=== PATIENT | female | born 1985 | race Caucasian/White ===

== ENCOUNTER 2021-09-30 10:40 | Outpatient (CLI) | payer BC | END 2021-09-30 19:10 | disposition home or self-care (01) | LOC: SRD 10:40 | PROVIDERS: ATTEND Specialist | DX: D25.9 Leiomyoma of uterus, unspecified (principal); N92.6 Irregular menstruation, unspecified | CPT/HCPCS: 58340; 74740; C1751; Q9967 ==

== ENCOUNTER 2022-01-14 03:58 | Emergency (ER) | payer BC ==
[~2022-01-14] VITALS: Ht 157.5 cm; Wt 124.7 kg
[2022-01-14 04:20] VITALS: BP_SYST 152
--- NOTE | 2022-01-14 04:28 | NUR ---
Patient to ER bed 6 to gown for evaluation. Side rails up.
--- NOTE | 2022-01-14 04:40 | NUR ---
PT COMPLAINING OF PELVIC PAIN AND VAGINAL BLEEDING X1 DAY STATES LMP 11/04/21 APPROX 7 WKS WITH FIRST NAD NOTED AT THIS TIME. RESP E/U. GCS15. AMBULATED WITH STEADY GAIT FROM TRIAGE. SKIN WDL. SPEAKING IN FULL CLEAR SENTENCES. PARTNER AT BEDSIDE. HX UTERINE FIBROIDS, TAKING METFORMIN BUT STATES SHE HAS NEVER BEEN DIAGNOSED WITH DM
--- NOTE | 2022-01-14 04:46 | NUR ---
JENNIFER Iverson at bedside examining patient.
[2022-01-14 05:13] LABS: HEMOGLOBIN 11.4 g/dL (12.0-16.0); RED BLOOD CELL COUNT(AUTO) 4.44 MIL/uL (4.2-6.2)
[2022-01-14 05:20] LABS: BASOPHILS # (AUTO) 0.1 K/uL (0.0-0.2); BASOPHILS % (AUTO) 0.7 % (0.0-2.0); EOSINOPHILS # (AUTO) 0.2 K/uL (0.0-0.4); EOSINOPHILS % (AUTO) 2.5 % (0.0-4.0); HEMATOCRIT 34.7 % (36-48); LYMPHOCYTES # (AUTO) 2.4 K/uL (1.0-5.5); LYMPHOCYTES % (AUTO) 26.9 % (20.5-51.5); MEAN CORPUSCULAR HEMOGLOBIN 26 pg (27-31); MEAN CORPUSCULAR HGB CONC 33 % (32-36); MEAN CORPUSCULAR VOLUME 78 fL (79.0-98.0); MONOCYTES # (AUTO) 0.6 K/uL (0.0-1.0); MONOCYTES % (AUTO) 6.7 % (1.7-9.3); NEUTROPHILS # (AUTO) 5.6 K/uL (1.8-7.7); NEUTROPHILS % (AUTO) 63.2 % (40.0-70.0); PLATELET COUNT (AUTO) 266 K/uL (130-430); RED CELL DISTRIBUTION WIDTH 18.2 % (9.0-15.0); WHITE BLOOD COUNT (AUTO) 8.9 K/uL (4.8-10.8)
[2022-01-14 05:26] LABS: CREATININE 0.79 mg/dL (0.55-1.30); POTASSIUM 3.7 mmol/L (3.5-5.1)
--- NOTE | 2022-01-14 05:34 | NUR ---
PT IN ULTRASOUND
[2022-01-14 06:01] LABS: ALBUMIN 2.9 g/dL (3.4-4.8); TOTAL BILIRUBIN 0.1 mg/dL (0.0-1.0)
[2022-01-14 06:34] VITALS: BP_SYST 114
[2022-01-14 06:36] LABS: BILIRUBIN,URINE NEGATIVE (NEGATIVE); BLOOD, URINE 3+ (NEGATIVE); CLARITY/URINE CLEAR (CLEAR); COLOR,URINE YELLOW (YELLOW); GLUCOSE,URINE NEGATIVE (NEGATIVE); KETONES,URINE NEGATIVE (NEGATIVE); LEUKOCYTE ESTERASE ,URINE NEGATIVE (NEGATIVE); NITRITE, URINE NEGATIVE (NEGATIVE); PROTEIN URINE NEGATIVE (NEGATIVE); UROBILINOGEN,URINE 0.2 (0.2-1.0)
[2022-01-14 06:43] LABS: BACTERIA,URINE RARE /HPF (None Seen); WBC,URINE 0-3 /HPF (0-3)
--- NOTE | 2022-01-14 06:44 | NUR ---
Patient given written and verbal discharge instructions and verbalizes understanding. ER MD discussed with patient the results and treatment provided. Patient in stable condition. ID arm band removed. Patient educated on pain management and to follow up with jail keeper. Pain Scale 0. Opportunity for questions provided and answered. Medication side effect fact sheet provided.
== END 2022-01-14 06:44 | disposition home or self-care (01) ==
LOC: SED 03:58
DX: O20.0 Threatened abortion (principal); Z3A.09 9 weeks gestation of pregnancy
CPT/HCPCS: 36415; 76801; 76817; 80053; 81000; 81025; 84702; 85025; 86900; 86901; 99284

== ENCOUNTER 2022-01-28 17:14 | Observation (INO) | payer BC, MEDICAID ==
[~2022-01-28] VITALS: Ht 160 cm; Wt 123.4 kg
--- NOTE | 2022-01-28 17:15 | NUR ---
Patient to ER bed 07 to gown for evaluation. Side rails up.
--- NOTE | 2022-01-28 17:17 | NUR ---
Pt brought by , A&Ox4, pt presents to ER with lower abdominal pain copious amount of vaginal bleeding and blood clots, pt states she was 9 weeks and 3 days , first , pt passed products of conception prior arrival and brought it in a cup, VSS, skin pink and warm, cap refill <3, respirations even and unlabored, will cont to monitor.
[2022-01-28 17:18] VITALS: BP_SYST 157
--- NOTE | 2022-01-28 17:30 | NUR ---
Dr Urbano evaluating patient at bedside
[2022-01-28] MEDS ORDERED: ONDANSETRON HCL 4 MG/2 ML VIAL IVP ONE (17:45)
[2022-01-28] MEDS ORDERED: MORPHINE 4 MG INJ. 4 MG/ML VIAL IVP ONE (17:45)
[2022-01-28] MEDS ORDERED: NACL 0.9% 1,000 ML IV ONE (17:45)
[2022-01-28 18:44] LABS: BASOPHILS # (AUTO) 0.1 K/uL (0.0-0.2); BASOPHILS % (AUTO) 0.5 % (0.0-2.0); EOSINOPHILS # (AUTO) 0.2 K/uL (0.0-0.4); EOSINOPHILS % (AUTO) 1.5 % (0.0-4.0); LYMPHOCYTES # (AUTO) 3.1 K/uL (1.0-5.5); LYMPHOCYTES % (AUTO) 24.7 % (20.5-51.5); MEAN CORPUSCULAR HEMOGLOBIN 26 pg (27-31); MEAN CORPUSCULAR HGB CONC 32 % (32-36); MEAN CORPUSCULAR VOLUME 79 fL (79.0-98.0); MONOCYTES # (AUTO) 0.8 K/uL (0.0-1.0); MONOCYTES % (AUTO) 6.5 % (1.7-9.3); NEUTROPHILS # (AUTO) 8.3 K/uL (1.8-7.7); NEUTROPHILS % (AUTO) 66.8 % (40.0-70.0); PLATELET COUNT (AUTO) 292 K/uL (130-430); RED BLOOD CELL COUNT(AUTO) 4.29 MIL/uL (4.2-6.2); RED CELL DISTRIBUTION WIDTH 17.5 % (9.0-15.0); WHITE BLOOD COUNT (AUTO) 12.5 K/uL (4.8-10.8)
--- NOTE | 2022-01-28 18:55 | NUR ---
US AT BEDSIDE AT THIS TIME
--- NOTE | 2022-01-28 19:21 | NUR ---
REPORT FROM SHERRI SORIANO
[2022-01-28] MEDS ORDERED: MORPHINE 4 MG INJ. 4 MG/ML VIAL IVP PRN (20:00)
[2022-01-28] MEDS ORDERED: D5LR IV SCH (20:00)
[2022-01-28] MEDS ORDERED: OXYTOCIN IV SCH (20:00)
[2022-01-28] MEDS ORDERED: ONDANSETRON HCL 4 MG/2 ML VIAL IVP PRN (20:00)
--- NOTE | 2022-01-28 20:06 | NUR ---
pelvic exam complete by dr. burleson. specimans x2 labeled and sent to lab/ pathology.
[2022-01-28] MEDS ORDERED: METF-518 PO (20:30)
--- NOTE | 2022-01-28 20:32 | NUR ---
Admit bed requested Patient will be admitted to care of . Admitted to med surg unit. Diagnosis Incomplte Inpatient (Yes or No) no Observation (Yes or No) yes Orientation concerns or request close to nursing station (Yes or No) no Covid Status pending On vent or bipap no Isolation requirements no Needs a sitter no From Home (Yes or if No enter name of facility) yes Requires Dialysis (Yes or No) no Med Rec Completed (Yes of No) yes
[2022-01-28] MEDS ORDERED: OXYTOCIN 10 UNIT/ML VIAL ONE (23:15)
--- NOTE | 2022-01-29 02:20 | NUR ---
PT FEELING BETTER. LESS VAGINAL BLEEDING. PAIN LEVAL 2/10. PT RESTING COMFORTABLY. AT BEDSIDE
--- NOTE | 2022-01-29 05:30 | NUR ---
RECEIVED CALL FROM HOUSE SUP . PER HOUSE SUP PT IS STABLE AND OK TO BE ADMITTED TO BE UNDER MED SURG CARE .
--- NOTE | 2022-01-29 06:40 | NUR ---
NOTICED THAT PT IS ON PITOCIN DRIP , WAS NOT INFORMED ME BY ER NURSE . CALLED HOUSE SUP. HOUSE SUP STATED HE WILL CALL OB NURSE TO COME AND DO ASSESSMENT AND CHECK THE DRIP . CALLED PHARMACY AND TALKED WITH [facility] PHARMACIST PER HIM OK TO GIVE PITOCIN IN THE MEDICAL SURGICAL UNIT .
--- NOTE | 2022-01-29 06:57 | NUR ---
ADMISSION: The patient, ILDEFONSO TORRES, 36 y/o, F admitted by TARSHA CHINO MD, was given written information regarding hospital policies, unit procedures and contact persons. Patient currently denies pain, has at bed side and was orientated to the call light. Patient is has no S/S of distress and is able to verbalize needs. Safety protocols are in place. Will differ further care to AM shift.
--- NOTE | 2022-01-29 07:15 | NUR ---
Opening Received report on pt. Pt in for observation for Dx incomplete . Pt AOx4, states no pain or distress at this time, on room air, ambulatory with steady gait. Pt with peripheral IV receiving pitocin 10 units in D5LR @60 ml/hr. Pt states her bleeding was not as bad as yesterday. Pt also states she had a void, RN unable to visualize d/t toilet being empty. No other complaints per pt.
[2022-01-29 07:30] VITALS: BP_SYST 124
[2022-01-29 08:00] VITALS: BP_SYST 124
--- NOTE | 2022-01-29 09:40 | NUR ---
Page out to Dr. Puentes for orders, spoke with exchange.
--- NOTE | 2022-01-29 10:03 | NUR ---
Transfer to OB Informed pt of situation, transfer report given to OB SHERRI Fairchild. Pt transferred via wheelchair, present. IV site intact, patent. All belongings sent with pt.
[2022-01-29] MEDS ORDERED: OXYTOCIN IV SCH (12:00)
[2022-01-29] MEDS ORDERED: D5LR IV SCH (12:00)
[2022-01-29] MEDS ORDERED: metFORMIN HCL 500 MG TABLET PO SCH (15:00)
== END 2022-01-29 14:10 | disposition home or self-care (01) ==
LOC: SED 17:14 → STU 20:30 → SMU 01-29 06:30 → SPU 01-29 10:26
PROVIDERS: ADMIT Specialist; ATTEND Specialist
DX: O03.4 Incomplete spontaneous abortion without complication (principal); Z20.822 Contact with and (suspected) exposure to COVID-19
CPT/HCPCS: 36415; 76856; 84702; 85025; 86900; 86901; 87426; 88305; 96361; 96365; 96366; 96375; 96376; 99285; G0378 ×2; J2270; J2405; J2590 ×2; J7120

== ENCOUNTER 2022-11-30 11:15 | Inpatient (IN) | payer BC, MEDICAID ==
[~2022-11-30] VITALS: Ht 160 cm; Wt 135.2 kg
[~2022-11-30 11:15] MED LIST: METF-518 PO
[2022-11-30] MEDS ORDERED: TERBUTALINE SULFATE 1 MG/ML VIAL SUBCUT ONE (11:45)
[2022-11-30] MEDS ORDERED: OXYTOCIN/0.9 % SODIUM CHLORIDE 1,000 ML IV SCH (11:45)
[2022-11-30] MEDS ORDERED: LR 1,000 ML IV ONE (11:45)
[2022-11-30] MEDS ORDERED: NALBUPHINE HCL 10 MG/ML AMP IVP PRN (11:45)
[2022-11-30 12:10] LABS: BILIRUBIN,URINE NEGATIVE (NEGATIVE); BLOOD, URINE NEGATIVE (NEGATIVE); CLARITY/URINE CLEAR (CLEAR); COLOR,URINE YELLOW (YELLOW); GLUCOSE,URINE NEGATIVE (NEGATIVE); KETONES,URINE NEGATIVE (NEGATIVE); LEUKOCYTE ESTERASE ,URINE NEGATIVE (NEGATIVE); NITRITE, URINE NEGATIVE (NEGATIVE); PROTEIN URINE 1+ (NEGATIVE); UROBILINOGEN,URINE 0.2 (0.2-1.0)
[2022-11-30 12:11] LABS: BASOPHILS # (AUTO) 0.1 K/uL (0.0-0.2); BASOPHILS % (AUTO) 0.4 % (0.0-2.0); EOSINOPHILS # (AUTO) 0.1 K/uL (0.0-0.4); EOSINOPHILS % (AUTO) 0.6 % (0.0-4.0); HEMATOCRIT 31.8 % (36-48); HEMOGLOBIN 10.1 g/dL (12.0-16.0); LYMPHOCYTES % (AUTO) 17.1 % (20.5-51.5); MEAN CORPUSCULAR HEMOGLOBIN 25 pg (27-31); MEAN CORPUSCULAR HGB CONC 32 % (32-36); MEAN CORPUSCULAR VOLUME 78 fL (79.0-98.0); MONOCYTES # (AUTO) 0.7 K/uL (0.0-1.0); MONOCYTES % (AUTO) 6.1 % (1.7-9.3); NEUTROPHILS % (AUTO) 75.8 % (40.0-70.0); PLATELET COUNT (AUTO) 296 K/uL (130-430); RED BLOOD CELL COUNT(AUTO) 4.07 MIL/uL (4.2-6.2); RED CELL DISTRIBUTION WIDTH 15.8 % (9.0-15.0); WHITE BLOOD COUNT (AUTO) 11.9 K/uL (4.8-10.8)
[2022-11-30 12:28] LABS: BACTERIA,URINE RARE /HPF (None Seen); RBC,URINE 0-3 /HPF (0-3); WBC,URINE 0-3 /HPF (0-3)
[2022-11-30 12:32] LABS: CALCIUM 8.4 mg/dL (8.4-11.0); CREATININE 0.62 mg/dL (0.55-1.30)
[2022-11-30 12:36] LABS: INR 0.9 (0.8-1.2); PROTHROMBIN TIME 9.2 SECS (9.5-12.5)
[2022-11-30 12:37] LABS: ALBUMIN 2.2 g/dL (3.4-4.8); TOTAL BILIRUBIN 0.1 mg/dL (0.0-1.0)
[2022-11-30] MEDS: NIFEdipine (O.B. USE ONLY) 10 MG CAPSULE PO SCH (17:10)
[2022-11-30] MEDS ORDERED: TEMAZEPAM 15 MG CAPSULE PO PRN (18:30)
[2022-11-30 18:45] VITALS: BP_SYST 144
[2022-11-30] MEDS: LR 1,000 ML IV SCH (22:37)
[2022-12-01] MEDS: NIFEdipine (O.B. USE ONLY) 10 MG CAPSULE PO SCH ×2 (05:03→17:06)
[2022-12-01] MEDS: LR 1,000 ML IV SCH ×2 (06:08→20:18)
[2022-12-01] MEDS ORDERED: LIDOCAINE PF 1% 30ML(POUR BTL) INJ ONE (14:23)
[2022-12-01] MEDS ORDERED: LIGHT MINERAL OIL 10 ML VIAL MC ONE (14:23)
[2022-12-01] MEDS ORDERED: NALOXONE HCL 0.4 MG/ML AMP (NARCAN) ONE (14:23)
[2022-12-01] MEDS ORDERED: FENT2mCg/mL-ROPIVA0.2%/NS EPID 200 ML EP ONE (14:40)
[2022-12-01] MEDS ORDERED: fentaNYL CITRATE/PF 100 MCG/2 ML AMP ONE (14:40)
[2022-12-01] MEDS ORDERED: ROPIVACAINE HCL/PF 0.2% 200 ML ONE (14:41)
[2022-12-02] MEDS ORDERED: RHO(D) IMMUNE GLOBULIN/MALTOSE 1500 UNITS/1.3 ML (WINHRO) IM PRN (04:15)
[2022-12-02] MEDS ORDERED: HYDROCORTISONE 0.5% CREAM 28.4 GM CREAM.GM. TP PRN (04:15)
[2022-12-02] MEDS ORDERED: DERMOPLAST SPRAY TP PRN (04:15)
[2022-12-02] MEDS ORDERED: ANUSOL 1 EA SUPP.RECT (PREPARATION H) RC PRN (04:15)
[2022-12-02] MEDS ORDERED: OXYTOCIN/0.9 % SODIUM CHLORIDE 1,000 ML IV SCH ×2 (04:15→20:45)
[2022-12-02] MEDS ORDERED: HYDROcodone/ACETAMIN 5-325 MG TAB (NORCO/ VICODIN) PO PRN (04:15)
[2022-12-02] MEDS ORDERED: LANOLIN 7 GM OINT. TP PRN (04:15)
[2022-12-02] MEDS ORDERED: MEASLES,MUMPS&RUBELLA VACC/PF 12500 UNIT/0.5 ML VIAL SUBQ PRN (04:15)
[2022-12-02] MEDS ORDERED: OXYCODONE/ACETAMINOPHEN 5-325 TABLET PO PRN (04:15)
[2022-12-02] MEDS ORDERED: DIPHTH,PERTUSS(ACELL),TET VAC 0.5 ML VIAL (Tdap) I.M. PRN (04:15)
[2022-12-02] MEDS ORDERED: NALOXONE HCL 0.4 MG/ML AMP (NARCAN) IVP PRN (04:15)
[2022-12-02] MEDS ORDERED: WITCH HAZEL LEAF 1 MED.PAD MED.PAD TP PRN (04:15)
[2022-12-02] MEDS ORDERED: OXYTOCIN/0.9 % SODIUM CHLORIDE 1,000 ML IV ONE (04:15)
[2022-12-02] MEDS: IBUPROFEN 600 MG TABLET PO SCH (05:35)
[2022-12-02] MEDS: OXYCODONE/ACETAMINOPHEN 5-325 TABLET PO PRN ×2 (06:18→21:42)
[2022-12-02] MEDS ORDERED: miSOPROStoL 200 MCG TABLET (CYTOTEC) PO ONE (06:45)
[2022-12-02] MEDS ORDERED: miSOPROStoL 200 MCG TABLET (CYTOTEC) ONE (06:53)
[2022-12-02] MEDS ORDERED: ONDANSETRON HCL 4 MG/2 ML VIAL ONE (07:51)
[2022-12-02] MEDS ORDERED: MEPERIDINE 50 MG/ML VIAL IVP ONE ×2 (07:51→08:18)
[2022-12-02] MEDS ORDERED: MEPERIDINE 50 MG/ML VIAL ONE ×2 (07:51→08:18)
[2022-12-02] MEDS ORDERED: MIDAZOLAM HCL 5 MG/5 ML VIAL ONE (07:58)
[2022-12-02] MEDS ORDERED: MIDAZOLAM HCL 5 MG/5 ML VIAL IVP ONE (07:58)
[2022-12-02] MEDS ORDERED: MIDAZOLAM HCL 2 MG/2 ML VIAL (VERSED) IVP ONE (07:58)
[2022-12-02] MEDS ORDERED: MIDAZOLAM HCL 2 MG/2 ML VIAL (VERSED) ONE (07:58)
[2022-12-02] MEDS ORDERED: ceFAZolin SODIUM 2 GM in D5W 100 ML IV ONE (08:45)
[2022-12-02] MEDS ORDERED: DOCUSATE SODIUM 100 MG CAPSULE PO SCH (09:00)
[2022-12-02] MEDS ORDERED: ONDANSETRON HCL 4 MG/2 ML VIAL IVP PRN (09:30)
[2022-12-02 09:40] LABS: BASOPHILS % (AUTO) 0.2 % (0.0-2.0); EOSINOPHILS % (AUTO) 0.1 % (0.0-4.0); HEMATOCRIT 24.2 % (36-48); HEMOGLOBIN 7.5 g/dL (12.0-16.0); LYMPHOCYTES # (AUTO) 2.5 K/uL (1.0-5.5); LYMPHOCYTES % (AUTO) 10.7 % (20.5-51.5); MEAN CORPUSCULAR HEMOGLOBIN 24 pg (27-31); MEAN CORPUSCULAR HGB CONC 31 % (32-36); MEAN CORPUSCULAR VOLUME 79 fL (79.0-98.0); MONOCYTES # (AUTO) 1.4 K/uL (0.0-1.0); MONOCYTES % (AUTO) 5.9 % (1.7-9.3); NEUTROPHILS # (AUTO) 19.7 K/uL (1.8-7.7); NEUTROPHILS % (AUTO) 83.1 % (40.0-70.0); PLATELET COUNT (AUTO) 269 K/uL (130-430); RED BLOOD CELL COUNT(AUTO) 3.07 MIL/uL (4.2-6.2); RED CELL DISTRIBUTION WIDTH 15.6 % (9.0-15.0); WHITE BLOOD COUNT (AUTO) 23.7 K/uL (4.8-10.8)
[2022-12-02 09:48] LABS: CALCIUM 7.5 mg/dL (8.4-11.0); CREATININE 0.76 mg/dL (0.55-1.30)
[2022-12-02 09:49] LABS: INR 0.9 (0.8-1.2); PROTHROMBIN TIME 9.8 SECS (9.5-12.5)
[2022-12-02 09:53] LABS: ALBUMIN 1.7 g/dL (3.4-4.8); TOTAL BILIRUBIN 0.3 mg/dL (0.0-1.0)
[2022-12-02] MEDS ORDERED: NACL 0.9% 1,000 ML IV ONE (13:15)
[2022-12-02] MEDS ORDERED: TEMAZEPAM 15 MG CAPSULE PO PRN (21:00)
[2022-12-02] MEDS ORDERED: OXYTOCIN IV SCH (21:00)
[2022-12-02] MEDS ORDERED: NACL 0.9% IV SCH (21:00)
[2022-12-02] MEDS ORDERED: OXYTOCIN 10 UNIT/ML VIAL ONE (21:02)
[2022-12-02 21:11] LABS: BASOPHILS # (AUTO) 0.1 K/uL (0.0-0.2); BASOPHILS % (AUTO) 0.3 % (0.0-2.0); EOSINOPHILS # (AUTO) 0.1 K/uL (0.0-0.4); EOSINOPHILS % (AUTO) 0.4 % (0.0-4.0); LYMPHOCYTES # (AUTO) 2.7 K/uL (1.0-5.5); LYMPHOCYTES % (AUTO) 14.3 % (20.5-51.5); MEAN CORPUSCULAR HEMOGLOBIN 25 pg (27-31); MEAN CORPUSCULAR HGB CONC 31 % (32-36); MEAN CORPUSCULAR VOLUME 79 fL (79.0-98.0); MONOCYTES # (AUTO) 1.1 K/uL (0.0-1.0); NEUTROPHILS # (AUTO) 14.7 K/uL (1.8-7.7); PLATELET COUNT (AUTO) 232 K/uL (130-430); RED BLOOD CELL COUNT(AUTO) 2.41 MIL/uL (4.2-6.2); RED CELL DISTRIBUTION WIDTH 15.7 % (9.0-15.0); WHITE BLOOD COUNT (AUTO) 18.7 K/uL (4.8-10.8)
[2022-12-02] MEDS: SENNOSIDES/DOCUSATE SODIUM 1 TAB TABLET(SENOKOT-S) PO SCH (21:42)
[2022-12-02] MEDS: ceFAZolin SODIUM 1 GM in D5W 50 ML IV SCH (21:42)
[2022-12-02 22:17] LABS: HEMOGLOBIN 5.9 g/dL (12.0-16.0)
[2022-12-03] MEDS: ceFAZolin SODIUM 1 GM in D5W 50 ML IV SCH (03:44)
[2022-12-03] MEDS: IBUPROFEN 600 MG TABLET PO SCH ×3 (06:00→17:57)
[2022-12-03 08:40] LABS: BASOPHILS % (AUTO) 0.3 % (0.0-2.0); EOSINOPHILS # (AUTO) 0.2 K/uL (0.0-0.4); EOSINOPHILS % (AUTO) 0.9 % (0.0-4.0); HEMATOCRIT 25.2 % (36-48); HEMOGLOBIN 8.1 g/dL (12.0-16.0); LYMPHOCYTES # (AUTO) 2.6 K/uL (1.0-5.5); MEAN CORPUSCULAR HEMOGLOBIN 26 pg (27-31); MEAN CORPUSCULAR HGB CONC 32 % (32-36); MEAN CORPUSCULAR VOLUME 82 fL (79.0-98.0); MONOCYTES # (AUTO) 0.7 K/uL (0.0-1.0); MONOCYTES % (AUTO) 3.8 % (1.7-9.3); NEUTROPHILS # (AUTO) 14.9 K/uL (1.8-7.7); PLATELET COUNT (AUTO) 231 K/uL (130-430); RED BLOOD CELL COUNT(AUTO) 3.09 MIL/uL (4.2-6.2); RED CELL DISTRIBUTION WIDTH 16.5 % (9.0-15.0); WHITE BLOOD COUNT (AUTO) 18.4 K/uL (4.8-10.8)
[2022-12-03 08:49] LABS: CALCIUM 7.8 mg/dL (8.4-11.0); CREATININE 0.64 mg/dL (0.55-1.30)
[2022-12-03 10:42] LABS: TOTAL IRON BIND. CAPACITY 479 ug/dL (250-450)
[2022-12-03 11:52] LABS: BASOPHILS # (AUTO) 0.1 K/uL (0.0-0.2); BASOPHILS % (AUTO) 0.3 % (0.0-2.0); EOSINOPHILS # (AUTO) 0.2 K/uL (0.0-0.4); EOSINOPHILS % (AUTO) 1.1 % (0.0-4.0); HEMATOCRIT 23.9 % (36-48); HEMOGLOBIN 7.6 g/dL (12.0-16.0); LYMPHOCYTES # (AUTO) 2.6 K/uL (1.0-5.5); LYMPHOCYTES % (AUTO) 14.6 % (20.5-51.5); MEAN CORPUSCULAR HEMOGLOBIN 26 pg (27-31); MEAN CORPUSCULAR HGB CONC 32 % (32-36); MEAN CORPUSCULAR VOLUME 82 fL (79.0-98.0); MONOCYTES # (AUTO) 1.1 K/uL (0.0-1.0); MONOCYTES % (AUTO) 5.9 % (1.7-9.3); NEUTROPHILS # (AUTO) 13.9 K/uL (1.8-7.7); NEUTROPHILS % (AUTO) 78.1 % (40.0-70.0); PLATELET COUNT (AUTO) 240 K/uL (130-430); RED BLOOD CELL COUNT(AUTO) 2.91 MIL/uL (4.2-6.2); RED CELL DISTRIBUTION WIDTH 16.7 % (9.0-15.0); WHITE BLOOD COUNT (AUTO) 17.8 K/uL (4.8-10.8)
[2022-12-03 13:46] LABS: BASOPHILS # (AUTO) 0.1 K/uL (0.0-0.2); BASOPHILS % (AUTO) 0.6 % (0.0-2.0); EOSINOPHILS # (AUTO) 0.2 K/uL (0.0-0.4); EOSINOPHILS % (AUTO) 1.1 % (0.0-4.0); HEMATOCRIT 23.2 % (36-48); HEMOGLOBIN 7.5 g/dL (12.0-16.0); LYMPHOCYTES # (AUTO) 2.6 K/uL (1.0-5.5); LYMPHOCYTES % (AUTO) 16.1 % (20.5-51.5); MEAN CORPUSCULAR HEMOGLOBIN 26 pg (27-31); MEAN CORPUSCULAR HGB CONC 32 % (32-36); MEAN CORPUSCULAR VOLUME 82 fL (79.0-98.0); MONOCYTES # (AUTO) 0.8 K/uL (0.0-1.0); MONOCYTES % (AUTO) 5.1 % (1.7-9.3); NEUTROPHILS # (AUTO) 12.5 K/uL (1.8-7.7); NEUTROPHILS % (AUTO) 77.1 % (40.0-70.0); PLATELET COUNT (AUTO) 239 K/uL (130-430); RED BLOOD CELL COUNT(AUTO) 2.85 MIL/uL (4.2-6.2); RED CELL DISTRIBUTION WIDTH 16.6 % (9.0-15.0); WHITE BLOOD COUNT (AUTO) 16.3 K/uL (4.8-10.8)
[2022-12-03] MEDS ORDERED: FERROUS SULFATE 325 MG TABLET.DR PO ONE (14:30)
[2022-12-03] MEDS: FERROUS SULFATE 325 MG TABLET.DR PO SCH (20:13)
[2022-12-03] MEDS: SENNOSIDES/DOCUSATE SODIUM 1 TAB TABLET(SENOKOT-S) PO SCH (20:13)
[2022-12-04 07:04] LABS: BASOPHILS % (AUTO) 0.3 % (0.0-2.0); EOSINOPHILS # (AUTO) 0.3 K/uL (0.0-0.4); EOSINOPHILS % (AUTO) 2.4 % (0.0-4.0); LYMPHOCYTES # (AUTO) 2.5 K/uL (1.0-5.5); LYMPHOCYTES % (AUTO) 17.9 % (20.5-51.5); MEAN CORPUSCULAR HEMOGLOBIN 26 pg (27-31); MEAN CORPUSCULAR HGB CONC 32 % (32-36); MEAN CORPUSCULAR VOLUME 82 fL (79.0-98.0); MONOCYTES # (AUTO) 0.8 K/uL (0.0-1.0); MONOCYTES % (AUTO) 5.5 % (1.7-9.3); NEUTROPHILS # (AUTO) 10.5 K/uL (1.8-7.7); NEUTROPHILS % (AUTO) 73.9 % (40.0-70.0); PLATELET COUNT (AUTO) 255 K/uL (130-430); RED BLOOD CELL COUNT(AUTO) 2.64 MIL/uL (4.2-6.2); RED CELL DISTRIBUTION WIDTH 16.9 % (9.0-15.0); WHITE BLOOD COUNT (AUTO) 14.2 K/uL (4.8-10.8)
[2022-12-04 07:48] LABS: HEMATOCRIT 21.6 % (36-48); HEMOGLOBIN 6.9 g/dL (12.0-16.0)
[2022-12-04 08:17] LABS: CALCIUM 7.8 mg/dL (8.4-11.0); CREATININE 0.58 mg/dL (0.55-1.30)
[2022-12-04 09:48] LABS: BASOPHILS % (AUTO) 0.3 % (0.0-2.0); EOSINOPHILS # (AUTO) 0.3 K/uL (0.0-0.4); EOSINOPHILS % (AUTO) 2.6 % (0.0-4.0); LYMPHOCYTES % (AUTO) 14.5 % (20.5-51.5); MEAN CORPUSCULAR HEMOGLOBIN 26 pg (27-31); MEAN CORPUSCULAR HGB CONC 32 % (32-36); MEAN CORPUSCULAR VOLUME 82 fL (79.0-98.0); MONOCYTES # (AUTO) 0.7 K/uL (0.0-1.0); MONOCYTES % (AUTO) 5.5 % (1.7-9.3); NEUTROPHILS # (AUTO) 10.5 K/uL (1.8-7.7); NEUTROPHILS % (AUTO) 77.1 % (40.0-70.0); PLATELET COUNT (AUTO) 276 K/uL (130-430); RED BLOOD CELL COUNT(AUTO) 2.63 MIL/uL (4.2-6.2); RED CELL DISTRIBUTION WIDTH 16.6 % (9.0-15.0); WHITE BLOOD COUNT (AUTO) 13.6 K/uL (4.8-10.8)
[2022-12-04 10:01] LABS: HEMATOCRIT 21.6 % (36-48); HEMOGLOBIN 6.9 g/dL (12.0-16.0)
[2022-12-04] MEDS: FERROUS SULFATE 325 MG TABLET.DR PO SCH ×2 (13:25→21:00)
[2022-12-04] MEDS: SENNOSIDES/DOCUSATE SODIUM 1 TAB TABLET(SENOKOT-S) PO SCH (21:00)
[2022-12-05 07:09] LABS: BASOPHILS % (AUTO) 0.2 % (0.0-2.0); EOSINOPHILS # (AUTO) 0.3 K/uL (0.0-0.4); EOSINOPHILS % (AUTO) 2.2 % (0.0-4.0); HEMOGLOBIN 8.4 g/dL (12.0-16.0); LYMPHOCYTES # (AUTO) 2.2 K/uL (1.0-5.5); LYMPHOCYTES % (AUTO) 17.1 % (20.5-51.5); MEAN CORPUSCULAR HEMOGLOBIN 27 pg (27-31); MEAN CORPUSCULAR HGB CONC 32 % (32-36); MEAN CORPUSCULAR VOLUME 84 fL (79.0-98.0); MONOCYTES # (AUTO) 0.7 K/uL (0.0-1.0); MONOCYTES % (AUTO) 5.6 % (1.7-9.3); NEUTROPHILS # (AUTO) 9.8 K/uL (1.8-7.7); NEUTROPHILS % (AUTO) 74.9 % (40.0-70.0); PLATELET COUNT (AUTO) 303 K/uL (130-430); RED BLOOD CELL COUNT(AUTO) 3.11 MIL/uL (4.2-6.2); RED CELL DISTRIBUTION WIDTH 16.6 % (9.0-15.0)
[2022-12-05 07:45] LABS: INR 0.9 (0.8-1.2); PROTHROMBIN TIME 9.2 SECS (9.5-12.5)
== END 2022-12-05 14:15 | disposition home or self-care (01) | DRG 806 ==
LOC: SPU 11:15
PROVIDERS: ADMIT Specialist; ATTEND Specialist
PROC: 10E0XZZ Delivery of Products of Conception, External Approach (ICD-10-PCS; principal; 2022-12-02)
PROC: 0KQM0ZZ Repair Perineum Muscle, Open Approach (ICD-10-PCS; 2022-12-02)
PROC: 3E033VJ Introduction of Other Hormone into Peripheral Vein, Percutaneous Approach (ICD-10-PCS; 2022-12-02)
PROC: 3E0R3BZ Introduction of Anesthetic Agent into Spinal Canal, Percutaneous Approach (ICD-10-PCS; 2022-12-02)
PROC: 00HU33Z Insertion of Infusion Device into Spinal Canal, Percutaneous Approach (ICD-10-PCS; 2022-12-02)
PROC: 30233R1 Transfusion of Nonautologous Platelets into Peripheral Vein, Percutaneous Approach (ICD-10-PCS; 2022-12-03)
PROC: 30233N1 Transfusion of Nonautologous Red Blood Cells into Peripheral Vein, Percutaneous Approach (ICD-10-PCS; 2022-12-03)
DX: O13.4 Gestational [pregnancy-induced] hypertension without significant proteinuria, complicating childbirth (principal); D62 Acute posthemorrhagic anemia; Z37.0 Single live birth; O41.03X0 Oligohydramnios, third trimester, not applicable or unspecified; O99.284 Endocrine, nutritional and metabolic diseases complicating childbirth; E86.0 Dehydration; O70.1 Second degree perineal laceration during delivery; Z3A.36 36 weeks gestation of pregnancy
CPT/HCPCS: 36415; 80048; 80053; 81000; 83540; 83550; 85025; 85379; 85384; 85610-TC; 85730-TC; 86592; 86886; 86900; 86901; 86920; 94760; J0690; J2001; J2175; J2250; J2310; J2405; J2590; J3010; J3465; J7030; J7050; J7060; J7120; P9021; P9034